=== PATIENT | male | born 1965 | race Hispanic/Latino ===

== ENCOUNTER 2016-06-18 09:25 | Outpatient (CLI) | payer OTHER ==
[2016-06-18 09:49] LABS: Bilirubin Negative (Negative); Blood, Urine Moderate (Negative); Glucose, Urine (Dipstick) Negative (Negative); Ketone, Urine Negative (Negative); Nitrite Negative (Negative); Protein, Urine (Dipstick) 30 mg/dL (Neg-Trace); Urobilinogen 0.2 mg/dL (0.2-1.0)
[2016-06-18 09:56] LABS: #Basophils 0.1 thou/uL (0.0-0.2); #Eosinphils 0.4 thou/uL (0.0-0.7); #Monocytes 0.5 thou/uL (0.11-0.59); #Neutrophils 5.8 thou/uL (1.40-6.50); %Basophils 0.7 % (0.0-1.0); %Eosinophils 4.3 % (0.0-10.0); %Lymphocytes 22.5 % (21.0-51.0); %Monocytes 5.3 % (0.0-10.0); Bacteria/HPF Rare-Few HPF (None Seen); Hematocrit 45.6 % (42.0-52.0); Mean Platelet Volume 10.1 fL (7.4-10.4); RBC/HPF 0-3 HPF (0-3); Red Blood Cell (RBC) Count 5.17 mill/uL (4.70-6.10); Squamous Epithelial None Seen HPF (0-3); WBC/HPF None Seen HPF (0-3); White Blood Cell (WBC) Count 8.7 thou/uL (4.8-10.8)
[2016-06-18 10:02] LABS: ALT (SGPT) 24 U/L (0-55); AST (SGOT) 23 U/L (5-34); Alkaline Phosphatase 68 U/L (40-150); Anion Gap 14 mmol/L (10-20); BUN (Urea Nitrogen) 14 mg/dL (8.4-25.7); Bilirubin, Total 0.4 mg/dL (0.2-1.2); Calc. Creatinine Clearance 0 mL/min (70-130); Calcium 9.3 mg/dL (7.8-10.44); Carbon Dioxide 25 mmol/L (22-29); Chloride 104 mmol/L (98-107); Estimated GFR-MDRD Greater than 90; Globulin 3.8 g/dL (2.4-3.5); LDL Cholesterol, Calculated 176 mg/dL; Protein, Total 7.9 g/dL (6.0-8.3)
== END 2016-06-18 09:26 ==
LOC: NAVSJIPCSP 09:25
PROVIDERS: ATTEND Internal Medicine
DX: Z12.5 Encounter for screening for malignant neoplasm of prostate (principal); E78.5 Hyperlipidemia, unspecified; R73.01 Impaired fasting glucose
CPT/HCPCS: 80053; 80061; 81003; 81015; 85025; G0103

== ENCOUNTER 2016-08-20 10:14 | Outpatient (CLI) | payer OTHER ==
[2016-08-20 11:01] LABS: ALT (SGPT) 23 U/L (0-55); AST (SGOT) 23 U/L (5-34); Albumin 4.1 g/dL (3.5-5.0); Alkaline Phosphatase 66 U/L (40-150); Bilirubin, Direct 0.1 mg/dL (0.1-0.3); Bilirubin, Total 0.4 mg/dL (0.2-1.2); Cardiac Risk 4.5 (Less than 4.5); Cholesterol 211 mg/dL (< 200 Desired); HDL Cholesterol 47 mg/dL (>60 Neg Risk); LDL Cholesterol, Calculated 147 mg/dL; Protein, Total 7.4 g/dL (6.0-8.3); Triglycerides 85 mg/dL (Less than 150)
== END 2016-08-20 10:15 | disposition home or self-care (01) ==
LOC: NAVSJIPCSP 10:14
PROVIDERS: ATTEND Internal Medicine
DX: E78.5 Hyperlipidemia, unspecified (principal); B35.1 Tinea unguium; Z79.899 Other long term (current) drug therapy
CPT/HCPCS: 80061; 80076

== ENCOUNTER 2016-12-26 10:26 | Outpatient (CLI) | payer OTHER ==
[2016-12-26 19:52] LABS: Cardiac Risk 4.3 (Less than 4.5)
== END 2016-12-26 10:27 | disposition home or self-care (01) ==
LOC: NAVSJIPCSP 10:26
PROVIDERS: ATTEND Internal Medicine
DX: E78.5 Hyperlipidemia, unspecified (principal); Z79.899 Other long term (current) drug therapy
CPT/HCPCS: 36415; 80061

== ENCOUNTER 2017-11-27 11:48 | Emergency (ER) | payer OTHER ==
[2017-11-27] MEDS ORDERED: Sodium Chloride 0.9% 1,000 ML ONE (12:19)
--- NOTE | 2017-11-27 13:19 | RAD ---
SINGLE VIEW OF THE CHEST: Comparison: 07-02-12 History: Dizziness while driving today. FINDINGS: Single view of the chest shows a normal sized cardiomediastinal silhouette. There is no evidence of c onsolidation, mass, or pleural effusion. The bones are unremarkable. IMPRESSION: No evidence of acute cardiopulmonary disease. POS: [facility]
--- NOTE | 2017-11-27 13:20 | CT ---
CT BRAIN WITHOUT CONTRAST: Comparison: None. History: Dizziness while driving today. Technique: Multiple contiguous axial images were obtained in a CT of the brain without contrast. FINDINGS: The brain is normal in morphology and attenuation without focal lesions or confluent areas of infarct ion. There is no evidence of hydrocephalus, intracranial hemorrhage, or extraaxial fluid collection. The calvarium and overlying soft tissues are unremarkable. The visualized paranasal sinuses and masto id air cells are well aerated. IMPRESSION: No evidence of acute intracranial abnormality. POS: [facility]
[2017-11-27 13:34] LABS: #Basophils 0.1 thou/uL (0.0-0.2); #Eosinphils 0.1 thou/uL (0.0-0.7); #Lymphocytes 2.2 thou/uL (1.20-3.40); #Monocytes 0.4 thou/uL (0.11-0.59); #Neutrophils 4.5 thou/uL (1.40-6.50); %Basophils 0.7 % (0.0-1.0); %Eosinophils 1.8 % (0.0-10.0); %Lymphocytes 29.6 % (21.0-51.0); %Neutrophils 61.9 % (42.0-75.0); Hemoglobin 15.2 g/dL (14.0-18.0); Mean Corpuscular HGB CONC 32.9 g/dL (32.0-36.0); Mean Corpuscular Hemoglobin 28.2 pg (27.0-31.0); Mean Corpuscular Volume 85.7 fL (78.0-98.0); Mean Platelet Volume 10.5 fL (7.4-10.4); Platelet Count 177 thou/uL (130-400); RBC Distribution Width 11.4 % (11.5-14.5); Red Blood Cell (RBC) Count 5.39 mill/uL (4.70-6.10); White Blood Cell (WBC) Count 7.3 thou/uL (4.8-10.8)
[2017-11-27 13:41] LABS: ALT (SGPT) 22 U/L (8-55); AST (SGOT) 20 U/L (5-34); Albumin 4.2 g/dL (3.5-5.0); Alkaline Phosphatase 73 U/L (40-150); Anion Gap 15 mmol/L (10-20); BUN (Urea Nitrogen) 12 mg/dL (8.4-25.7); Bilirubin, Total 0.4 mg/dL (0.2-1.2); CKMB 3.5 ng/mL (0-6.6); Calc. Creatinine Clearance 0 mL/min (70-130); Calcium 9.6 mg/dL (7.8-10.44); Carbon Dioxide 26 mmol/L (22-29); Chloride 102 mmol/L (98-107); Estimated GFR-MDRD Greater than 90; Globulin 2.9 g/dL (2.4-3.5); Glucose 101 mg/dL (70-105); Potassium 4.1 mmol/L (3.5-5.1); Protein, Total 7.1 g/dL (6.0-8.3); Sodium 139 mmol/L (136-145); Troponin I Less than 0.010 ng/mL (< 0.028)
== END 2017-11-27 14:05 | disposition home or self-care (01) ==
LOC: NAV ERS 11:48
DX: R42 Dizziness and giddiness (principal); E78.5 Hyperlipidemia, unspecified
CPT/HCPCS: 36416; 70450; 71045; 80053; 82553; 84484; 85025; 93005; 96360; J7050

== ENCOUNTER 2018-02-24 23:43 | Emergency (ER) | payer OTHER | END 2018-02-25 00:40 | disposition home or self-care (01) | LOC: NAV ERS 23:43 | DX: S80.812A Abrasion, left lower leg, initial encounter (principal); E78.5 Hyperlipidemia, unspecified; X58.XXXA Exposure to other specified factors, initial encounter | CPT/HCPCS: 99283 ==

== ENCOUNTER 2020-10-12 12:14 | Emergency (ER) | payer SELFPAY ==
[2020-10-12] MEDS ORDERED: Boostrix 0.5 ML (Tdap) VIAL ONE (12:34)
[2020-10-12] MEDS ORDERED: Lidocaine 1% w/Epinephrine 1:100K 20 ML VIAL ONE (12:42)
[2020-10-12] MEDS ORDERED: Bacitracin 1 PK ONE (13:20)
== END 2020-10-12 13:30 | disposition home or self-care (01) ==
LOC: NAV ERS 12:14
DX: S81.812A Laceration without foreign body, left lower leg, initial encounter (principal); E78.5 Hyperlipidemia, unspecified; E78.00 Pure hypercholesterolemia, unspecified; W22.8XXA Striking against or struck by other objects, initial encounter
CPT/HCPCS: 12001; 90471; 90715

== ENCOUNTER 2022-09-01 18:49 | Emergency (ER) | payer OTHER ==
[2022-09-01] MEDS ORDERED: Ibuprofen 800 MG TAB ONE (20:28)
== END 2022-09-01 20:30 | disposition home or self-care (01) ==
LOC: NAV ERS 18:49
DX: S80.11XA Contusion of right lower leg, initial encounter (principal); W18.30XA Fall on same level, unspecified, initial encounter